=== PATIENT | male | born 1935 | race Caucasian/White ===

== ENCOUNTER → 2017-01-09 18:00 | Outpatient (REF) | payer MEDICARE, SELFPAY | LOC: OLS.ACW100 18:00 | PROVIDERS: Visit Provider Internal Medicine | DX: E11.40 Type 2 diabetes mellitus with diabetic neuropathy, unspecified (principal); H05.011 Cellulitis of right orbit; I25.9 Chronic ischemic heart disease, unspecified; M15.0 Primary generalized (osteo)arthritis; F01.51 Vascular dementia, unspecified severity, with behavioral disturbance ==

== ENCOUNTER → 2017-03-16 10:47 | Outpatient (REF) | payer MEDICARE, SELFPAY ==
[2017-03-16 11:34] LABS: Color, Urine Yellow (Yellow); Glucose, Dipstick 1000 mg/dl (Normal); Ketone-Dipstick Negative (Negative); Leukocyte Esterase-Dipstick 100 /ul (Negative); Nitrite-Dipstick Negative (Negative); Occult Blood-Urine Negative /ul (Negative); Protein-Dipstick 15 mg/dl (Negative); Specific Gravity, Urine 1.015 (1.002-1.030); Urine Bilirubin Dipstick Negative (Negative); Urine Clarity Clear (Clear); Urine Urobilinogen Normal (Normal)
== END ==
LOC: OLS.ACW400 10:47
PROVIDERS: Visit Provider Internal Medicine
DX: E11.40 Type 2 diabetes mellitus with diabetic neuropathy, unspecified (principal); H05.011 Cellulitis of right orbit; I25.9 Chronic ischemic heart disease, unspecified; M15.0 Primary generalized (osteo)arthritis; F01.51 Vascular dementia, unspecified severity, with behavioral disturbance; R41.82 Altered mental status, unspecified
CPT/HCPCS: 81002; 87086

== ENCOUNTER → 2017-10-07 21:00 | Outpatient (REF) | payer MEDICARE, SELFPAY | LOC: OLS.ACW400 21:00 | PROVIDERS: Visit Provider Internal Medicine | DX: E11.40 Type 2 diabetes mellitus with diabetic neuropathy, unspecified (principal); H05.011 Cellulitis of right orbit; I25.9 Chronic ischemic heart disease, unspecified; M15.0 Primary generalized (osteo)arthritis; F01.51 Vascular dementia, unspecified severity, with behavioral disturbance | CPT/HCPCS: 87086; 87088 ==